=== PATIENT | male | born 1950 | race Caucasian/White ===

== ENCOUNTER → 2016-07-29 | Outpatient (CLI) | payer OTHER ==
[~2016-07-29] MED LIST: ASCO500T8 PO; AZO PO; B6 PO; CEPH-376 PO; CYAN500T18 PO; MIRA25TA PO; VITA10004 PO
[2016-07-29 15:13] LABS: BLOOD UREA NITROGEN 6 mg/dL (7-18)
[2016-07-29 15:16] LABS: ASPARTATE AMINO TRANSFERASE 31 U/L (15-37)
== END | disposition home or self-care (01) ==
LOC: STAR 14:02
PROVIDERS: ATTEND Surgery
DX: Z01.818 Encounter for other preprocedural examination (principal)
CPT/HCPCS: 36415; 80053; 85025; 93005

== ENCOUNTER 2016-08-08 05:54 | Inpatient (IN) | payer MEDICARE, OTHER ==
[~2016-08-08] VITALS: Ht 177.8 cm; Wt 90.4 kg
[2016-08-08 06:55] VITALS: BP 158/94
[2016-08-08] MEDS ORDERED: INDOCYANINE GREEN 25 MG VIAL ONE (06:57)
[2016-08-08] MEDS ORDERED: BUPIVACAINE/PF 0.25% ONE (06:57)
[2016-08-08] MEDS ORDERED: LACTATED RINGERS 1,000 ML IV SCH (07:01)
[2016-08-08] MEDS ORDERED: LIDOCAINE 1%, 2ML ONE (07:02)
[2016-08-08] MEDS ORDERED: KETAMINE 10 MG/ML, 20ML ONE (07:07)
[2016-08-08] MEDS ORDERED: FENTANYL PF 250 MCG/5ML ONE (07:07)
[2016-08-08] MEDS ORDERED: MIDAZOLAM 1 MG/ML, 2ML ONE (07:07)
[2016-08-08] MEDS ORDERED: LIDOCAINE 1%, 2ML SQ PRN (07:30)
[2016-08-08] MEDS ORDERED: DEXAMETHASONE 4 MG/ML, 1ML ONE (07:34)
[2016-08-08] MEDS ORDERED: CEFOTETAN 2 GM ONE ×2 (07:34)
[2016-08-08] MEDS ORDERED: ROCURONIUM 10 MG/ML ONE (07:34)
[2016-08-08] MEDS ORDERED: ONDANSETRON 2MG/ML, 2ML ONE (07:34)
[2016-08-08] MEDS ORDERED: NEOSTIGMINE 1 MG/ML, 10ML ONE (07:34)
[2016-08-08] MEDS ORDERED: PHENYLEPHRINE 10 MG/ML ONE (07:34)
[2016-08-08] MEDS ORDERED: LABETALOL 5MG/ML, 20ML ONE (07:34)
[2016-08-08] MEDS ORDERED: GLYCOPYRROLATE 0.2MG/1ML ONE (07:34)
[2016-08-08] MEDS ORDERED: PROPOFOL 10 MG/ML, 20ML ONE (07:34)
[2016-08-08] MEDS ORDERED: BUPIVACAINE/PF 0.25% INJ ONE (08:48)
[2016-08-08] MEDS ORDERED: ALBUTEROL SULFATE 2.5 MG/3 ML NPPB PRN (09:00)
[2016-08-08] MEDS ORDERED: hydrALAzine 20 MG/ML, 1ML IV PRN (09:00)
[2016-08-08] MEDS ORDERED: ONDANSETRON 2MG/ML, 2ML IVPush PRN (09:00)
[2016-08-08] MEDS ORDERED: MEPERIDINE/PF 25MG/0.5ML IVPush PRN (09:00)
[2016-08-08] MEDS ORDERED: ACETAMINOPHEN 325 MG TABLET PO PRN (09:00)
[2016-08-08] MEDS ORDERED: OXYcodone 5 MG/5 ML ORAL.SOL UDC PO PRN (09:00)
[2016-08-08] MEDS ORDERED: METOPROLOL 1 MG/ML, 5ML IV PRN (09:00)
[2016-08-08] MEDS ORDERED: PROMETHAZINE 25 MG/ML, 1ML IV PRN (09:00)
[2016-08-08] MEDS ORDERED: HYDROmorphone 2 MG/ML, 1ML ONE ×2 (09:13→11:10)
[2016-08-08] MEDS ORDERED: FENTANYL PF 100 MCG/2ML ONE (11:10)
[2016-08-08] MEDS: FENTANYL PF 100 MCG/2ML IV PRN ×2 (11:13→11:23)
[2016-08-08] MEDS: HYDROmorphone 1 MG/ML, 1ML IV PRN ×4 (11:18→11:50)
[2016-08-08] MEDS ORDERED: ACETAMINOPHEN 650 MG/20.3 ML UDC ONE (12:32)
[2016-08-08] MEDS ORDERED: OXYcodone 5 MG/5 ML ORAL.SOL UDC ONE (12:32)
[2016-08-08] MEDS ORDERED: HYDROmorphone 1 MG/ML, 1ML IV PRN (14:00)
[2016-08-08] MEDS ORDERED: DIPHENHYDRAMINE 50 MG/ML, 1ML IV PRN (14:00)
[2016-08-08] MEDS ORDERED: DIPHENHYDRAMINE 25 MG CAPSULE PO PRN (14:00)
[2016-08-08] MEDS ORDERED: LORazepam 2 MG/ML, 1ML IV PRN (14:00)
[2016-08-08] MEDS: POTASSIUM CHLORIDE 20 MEQ in D5%-0.45% NACL 1,000 ML IV SCH (16:16)
[2016-08-08] MEDS: PIPERACILLIN/TAZO 3.375 GM in SODIUM CHLORIDE 0.9% 50 ML IV SCH ×2 (16:16→20:07)
[2016-08-08] MEDS: ACETAMINOPHEN 500 MG TABLET PO SCH ×2 (16:19→20:07)
[2016-08-08] MEDS: IBUPROFEN 600 MG TABLET PO SCH ×2 (16:19→21:39)
[2016-08-08 19:45] VITALS: BP 97/55
[2016-08-08] MEDS: FAMOTIDINE 20 MG TABLET PO SCH (21:39)
[2016-08-08] MEDS: OXYcodone 5 MG/5 ML ORAL.SOL UDC PO PRN (23:24)
[2016-08-09 00:25] VITALS: BP 122/69
[2016-08-09] MEDS: PIPERACILLIN/TAZO 3.375 GM in SODIUM CHLORIDE 0.9% 50 ML IV SCH ×4 (02:00→19:26)
[2016-08-09] MEDS: ACETAMINOPHEN 500 MG TABLET PO SCH ×4 (02:25→19:26)
[2016-08-09] MEDS: ENOXAPARIN 40 MG/0.4 ML SQ SCH (04:20)
[2016-08-09 05:27] VITALS: BP 105/66
[2016-08-09 05:27] LABS: BLOOD UREA NITROGEN 13 mg/dL (7-18)
[2016-08-09 06:55] VITALS: BP 112/65
[2016-08-09] MEDS: FAMOTIDINE 20 MG TABLET PO SCH ×2 (08:38→21:00)
[2016-08-09] MEDS: [UNRECOGNIZED DRUG - OTHER] HOMEMEDPO SCH (08:39)
[2016-08-09] MEDS: IBUPROFEN 600 MG TABLET PO SCH ×3 (08:39→21:00)
[2016-08-09] MEDS: POTASSIUM CHLORIDE 20 MEQ in D5%-0.45% NACL 1,000 ML IV SCH (10:12)
[2016-08-09] MEDS: OXYcodone 5 MG/5 ML ORAL.SOL UDC PO PRN ×2 (11:26→19:26)
[2016-08-09 13:20] VITALS: BP 131/79
[2016-08-09 18:36] VITALS: BP 125/73
[2016-08-10] MEDS: ACETAMINOPHEN 500 MG TABLET PO SCH ×4 (02:00→19:54)
[2016-08-10 02:16] VITALS: BP 138/83
[2016-08-10] MEDS: PIPERACILLIN/TAZO 3.375 GM in SODIUM CHLORIDE 0.9% 50 ML IV SCH ×4 (02:42→19:54)
[2016-08-10] MEDS: ENOXAPARIN 40 MG/0.4 ML SQ SCH (04:00)
[2016-08-10 05:07] LABS: BLOOD UREA NITROGEN 13 mg/dL (7-18)
[2016-08-10] MEDS: POTASSIUM CHLORIDE 20 MEQ in D5%-0.45% NACL 1,000 ML IV SCH (05:27)
[2016-08-10 08:24] VITALS: BP 144/86
[2016-08-10] MEDS: [UNRECOGNIZED DRUG - OTHER] HOMEMEDPO SCH (09:39)
[2016-08-10] MEDS: IBUPROFEN 600 MG TABLET PO SCH ×3 (09:39→22:13)
[2016-08-10] MEDS: FAMOTIDINE 20 MG TABLET PO SCH ×2 (09:39→22:13)
[2016-08-10] MEDS: OXYcodone 5 MG/5 ML ORAL.SOL UDC PO PRN ×3 (09:39→19:55)
[2016-08-10 14:26] VITALS: BP 135/78
[2016-08-10] MEDS: FLUCONAZOLE 200 MG/100 ML 100 ML IV SCH (14:58)
[2016-08-10 18:47] VITALS: BP 133/70
[2016-08-11 02:30] VITALS: BP 109/68
[2016-08-11] MEDS: POTASSIUM CHLORIDE 20 MEQ in D5%-0.45% NACL 1,000 ML IV SCH ×2 (02:36→22:48)
[2016-08-11] MEDS: PIPERACILLIN/TAZO 3.375 GM in SODIUM CHLORIDE 0.9% 50 ML IV SCH ×4 (02:48→23:41)
[2016-08-11] MEDS: ACETAMINOPHEN 500 MG TABLET PO SCH ×4 (02:48→20:15)
[2016-08-11] MEDS: ENOXAPARIN 40 MG/0.4 ML SQ SCH (04:59)
[2016-08-11 05:46] LABS: BLOOD UREA NITROGEN 14 mg/dL (7-18)
[2016-08-11 07:45] VITALS: BP 143/85
[2016-08-11] MEDS: [UNRECOGNIZED DRUG - OTHER] HOMEMEDPO SCH (08:39)
[2016-08-11] MEDS: FAMOTIDINE 20 MG TABLET PO SCH ×2 (08:41→21:42)
[2016-08-11] MEDS: IBUPROFEN 600 MG TABLET PO SCH ×3 (08:41→21:42)
[2016-08-11] MEDS: LORazepam 1MG TABLET PO PRN (08:52)
[2016-08-11 13:20] VITALS: BP 151/79
[2016-08-11] MEDS: FLUCONAZOLE 200 MG/100 ML 100 ML IV SCH (14:59)
[2016-08-11] MEDS: OXYcodone 5 MG/5 ML ORAL.SOL UDC PO PRN ×2 (15:39→20:16)
[2016-08-11 20:00] VITALS: BP 129/84
[2016-08-12] MEDS: OXYcodone 5 MG/5 ML ORAL.SOL UDC PO PRN ×4 (02:28→21:13)
[2016-08-12] MEDS: ACETAMINOPHEN 500 MG TABLET PO SCH ×4 (02:32→19:46)
[2016-08-12 03:13] VITALS: BP 165/94
[2016-08-12 03:59] VITALS: BP 143/90
[2016-08-12] MEDS: ENOXAPARIN 40 MG/0.4 ML SQ SCH (04:06)
[2016-08-12] MEDS: PIPERACILLIN/TAZO 3.375 GM in SODIUM CHLORIDE 0.9% 50 ML IV SCH ×4 (05:12→23:39)
[2016-08-12 05:53] LABS: BLOOD UREA NITROGEN 15 mg/dL (7-18)
[2016-08-12 06:58] VITALS: BP 135/86
[2016-08-12] MEDS: [UNRECOGNIZED DRUG - OTHER] HOMEMEDPO SCH (08:56)
[2016-08-12] MEDS: FAMOTIDINE 20 MG TABLET PO SCH ×2 (08:56→21:13)
[2016-08-12] MEDS: IBUPROFEN 600 MG TABLET PO SCH ×3 (08:56→21:13)
[2016-08-12] MEDS: LORazepam 1MG TABLET PO PRN (11:42)
[2016-08-12 14:14] VITALS: BP 131/78
[2016-08-12] MEDS: FLUCONAZOLE 200 MG/100 ML 100 ML IV SCH (14:34)
[2016-08-12] MEDS: POTASSIUM CHLORIDE 20 MEQ in D5%-0.45% NACL 1,000 ML IV SCH (19:00)
[2016-08-12 20:28] VITALS: BP 151/67
[2016-08-13] MEDS: ACETAMINOPHEN 500 MG TABLET PO SCH ×2 (02:23→08:18)
[2016-08-13 03:03] VITALS: BP 138/71
[2016-08-13] MEDS: ENOXAPARIN 40 MG/0.4 ML SQ SCH (04:19)
[2016-08-13] MEDS: PIPERACILLIN/TAZO 3.375 GM in SODIUM CHLORIDE 0.9% 50 ML IV SCH ×2 (05:17→11:33)
[2016-08-13 07:18] VITALS: BP 159/87
[2016-08-13] MEDS: FAMOTIDINE 20 MG TABLET PO SCH (08:18)
[2016-08-13] MEDS: IBUPROFEN 600 MG TABLET PO SCH (08:18)
[2016-08-13] MEDS: [UNRECOGNIZED DRUG - OTHER] HOMEMEDPO SCH (08:19)
[2016-08-13] MEDS: OXYcodone 5 MG/5 ML ORAL.SOL UDC PO PRN (08:54)
[2016-08-13] MEDS ORDERED: OXYC-302 PO (12:30)
[2016-08-13] MEDS ORDERED: AMOX1TAB64 PO (12:34)
== END 2016-08-13 12:50 | disposition home or self-care (01) | DRG 329 ==
LOC: ORIP 05:54 → 4NOR 13:20 → DCLOUNGE 08-13 12:26
PROVIDERS: ADMIT Surgery; ATTEND Surgery
PROC: 8E0W4CZ Robotic Assisted Procedure of Trunk Region, Percutaneous Endoscopic Approach (ICD-10-PCS; 2016-08-08)
PROC: 0D1B0Z4 Bypass Ileum to Cutaneous, Open Approach (ICD-10-PCS; 2016-08-08)
PROC: 0DTN4ZZ Resection of Sigmoid Colon, Percutaneous Endoscopic Approach (ICD-10-PCS; 2016-08-08)
PROC: 0DBN0ZZ Excision of Sigmoid Colon, Open Approach (ICD-10-PCS; principal; 2016-08-08 07:30)
DX: K57.20 Diverticulitis of large intestine with perforation and abscess without bleeding (principal); E43 Unspecified severe protein-calorie malnutrition; N32.1 Vesicointestinal fistula; J44.9 Chronic obstructive pulmonary disease, unspecified; F17.200 Nicotine dependence, unspecified, uncomplicated; K57.30 Diverticulosis of large intestine without perforation or abscess without bleeding; E66.9 Obesity, unspecified; F10.10 Alcohol abuse, uncomplicated; Z88.2 Allergy status to sulfonamides; Z68.28 Body mass index [BMI] 28.0-28.9, adult
CPT/HCPCS: 36415; 80048; 82040; 85025; 86850; 86900; 87070; 87075; 87077; 87102; 87106; 87205; 88307; C1729; J1100; J1170; J1650; J2250; J2405; J2543; J2704; J2710; J3010; J3480; J3490; J1450; J2370; J7120; S0074

== ENCOUNTER → 2016-08-16 | Outpatient (CLI) | payer OTHER ==
[~2016-08-16] MED LIST changes: +AMOX1TAB64 PO; +CYSTO CONRAY II 250 ML VIAL UR ONE; +OXYC-302 PO
== END | disposition home or self-care (01) ==
LOC: RAD 11:13
PROVIDERS: ATTEND Surgery
DX: R10.2 Pelvic and perineal pain (principal); Z92.89 Personal history of other medical treatment
CPT/HCPCS: 74430; Q9958

== ENCOUNTER → 2016-10-01 | Outpatient (CLI) | payer OTHER ==
[~2016-10-01] MED LIST changes: -CYSTO CONRAY II 250 ML VIAL UR ONE
== END | disposition home or self-care (01) ==
LOC: STAR 12:54
PROVIDERS: ATTEND Surgery
DX: Z02.9 Encounter for administrative examinations, unspecified (principal)

== ENCOUNTER 2016-10-10 05:56 | Inpatient (IN) | payer MEDICARE, OTHER ==
[~2016-10-10] VITALS: Ht 175.3 cm; Wt 91.0 kg
[2016-10-10] MEDS ORDERED: LACTATED RINGERS 1,000 ML IV SCH (06:08)
[2016-10-10] MEDS ORDERED: FENTANYL PF 250 MCG/5ML ONE ×2 (06:50→08:06)
[2016-10-10] MEDS ORDERED: MIDAZOLAM 1 MG/ML, 2ML ONE (06:50)
[2016-10-10] MEDS ORDERED: OXYcodone 5 MG/5 ML ORAL.SOL UDC PO PRN (07:30)
[2016-10-10] MEDS ORDERED: LABETALOL 5MG/ML, 20ML IV PRN (07:30)
[2016-10-10] MEDS ORDERED: KETOROLAC 30 MG/1 ML IV PRN (07:30)
[2016-10-10] MEDS ORDERED: ACETAMINOPHEN 325 MG TABLET PO PRN (07:30)
[2016-10-10] MEDS ORDERED: MEPERIDINE/PF 25MG/0.5ML IVPush PRN (07:30)
[2016-10-10] MEDS ORDERED: ONDANSETRON 2MG/ML, 2ML IVPush PRN (07:30)
[2016-10-10] MEDS ORDERED: ALBUTEROL SULFATE 2.5 MG/3 ML ONE (08:33)
[2016-10-10] MEDS ORDERED: FENTANYL PF 100 MCG/2ML ONE ×2 (08:43→09:04)
[2016-10-10] MEDS ORDERED: HYDROmorphone 1 MG/ML, 1ML ONE ×2 (08:43→09:36)
[2016-10-10] MEDS ORDERED: OXYcodone 5 MG/5 ML ORAL.SOL UDC ONE (08:43)
[2016-10-10] MEDS: HYDROmorphone 1 MG/ML, 1ML IV PRN ×4 (08:50→10:00)
[2016-10-10] MEDS: FENTANYL PF 100 MCG/2ML IV PRN ×4 (08:56→09:14)
[2016-10-10] MEDS ORDERED: MEPERIDINE/PF 25MG/0.5ML ONE (09:04)
[2016-10-10] MEDS ORDERED: ACETAMINOPHEN 325 MG TABLET ONE (09:22)
[2016-10-10] MEDS ORDERED: FAMOTIDINE 20 MG/2 ML ONE (09:31)
[2016-10-10] MEDS ORDERED: DIPHENHYDRAMINE 50 MG/ML, 1ML ONE (09:37)
[2016-10-10] MEDS ORDERED: FAMOTIDINE 20 MG/2 ML IVPush ONE (10:00)
[2016-10-10] MEDS ORDERED: DIPHENHYDRAMINE 50 MG/ML, 1ML IVPush ONE (10:00)
[2016-10-10] MEDS ORDERED: GLYCOPYRROLATE 0.2MG/1ML ONE (11:00)
[2016-10-10] MEDS ORDERED: CEFOTETAN 2 GM ONE (11:00)
[2016-10-10] MEDS ORDERED: ONDANSETRON 2MG/ML, 2ML ONE (11:00)
[2016-10-10] MEDS ORDERED: NEOSTIGMINE 1 MG/ML, 10ML ONE (11:00)
[2016-10-10] MEDS ORDERED: POTASSIUM CHLORIDE 20 MEQ in D5%-0.45% NACL 1,000 ML IV SCH (12:00)
[2016-10-10] MEDS ORDERED: HYDROmorphone 1 MG/ML, 1ML IV PRN (12:00)
[2016-10-10] MEDS ORDERED: LORazepam 2 MG/ML, 1ML IV PRN (12:00)
[2016-10-10] MEDS ORDERED: LORazepam 1MG TABLET PO PRN (12:00)
[2016-10-10] MEDS: OXYcodone 5 MG/5 ML ORAL.SOL UDC PO PRN ×2 (13:23→17:32)
[2016-10-10 15:24] VITALS: BP 129/81
[2016-10-10] MEDS: IBUPROFEN 600 MG TABLET PO SCH ×2 (16:00→22:45)
[2016-10-10] MEDS: ACETAMINOPHEN 500 MG TABLET PO SCH ×2 (17:32→21:00)
[2016-10-10] MEDS: POTASSIUM CHLORIDE 20 MEQ in D5%-0.45% NACL 1,000 ML IV SCH (18:20)
[2016-10-10 19:03] VITALS: BP 124/66
[2016-10-10] MEDS: CEFOTETAN PMX 2GM/50ML 50 ML IVPB SCH (19:38)
[2016-10-10] MEDS: FAMOTIDINE 20 MG TABLET PO SCH (19:42)
[2016-10-10 23:29] VITALS: BP 121/75
[2016-10-11] MEDS: ACETAMINOPHEN 500 MG TABLET PO SCH ×4 (03:00→21:53)
[2016-10-11 03:52] VITALS: BP 121/70
[2016-10-11 05:03] LABS: BLOOD UREA NITROGEN 9 mg/dL (7-18)
[2016-10-11] MEDS: OXYcodone 5 MG/5 ML ORAL.SOL UDC PO PRN (05:37)
[2016-10-11] MEDS: ENOXAPARIN 40 MG/0.4 ML SQ SCH (05:46)
[2016-10-11] MEDS: POTASSIUM CHLORIDE 20 MEQ in D5%-0.45% NACL 1,000 ML IV SCH (08:12)
[2016-10-11 08:16] VITALS: BP 138/80
[2016-10-11] MEDS: IBUPROFEN 600 MG TABLET PO SCH ×3 (08:16→21:53)
[2016-10-11] MEDS: FAMOTIDINE 20 MG TABLET PO SCH ×2 (08:16→21:53)
[2016-10-11] MEDS: CEFOTETAN PMX 2GM/50ML 50 ML IVPB SCH (08:17)
[2016-10-11 15:25] VITALS: BP 147/81
[2016-10-11 21:09] VITALS: BP 151/88
[2016-10-12 03:04] VITALS: BP 127/79
[2016-10-12] MEDS: ACETAMINOPHEN 500 MG TABLET PO SCH ×2 (03:26→09:40)
[2016-10-12] MEDS: POTASSIUM CHLORIDE 20 MEQ in D5%-0.45% NACL 1,000 ML IV SCH (04:24)
[2016-10-12 06:13] LABS: BLOOD UREA NITROGEN 11 mg/dL (7-18)
[2016-10-12] MEDS: ENOXAPARIN 40 MG/0.4 ML SQ SCH (06:21)
[2016-10-12 07:45] VITALS: BP 128/83
[2016-10-12] MEDS ORDERED: TAMS-11 PO (09:25)
[2016-10-12] MEDS ORDERED: OXYC-302 PO (09:26)
[2016-10-12] MEDS: IBUPROFEN 600 MG TABLET PO SCH (09:40)
[2016-10-12] MEDS: FAMOTIDINE 20 MG TABLET PO SCH (09:40)
== END 2016-10-12 12:30 | disposition home or self-care (01) | DRG 329 ==
LOC: ORIP 05:56 → 4NOR 11:04
PROVIDERS: ADMIT Surgery; ATTEND Surgery
PROC: 0DBB0ZZ Excision of Ileum, Open Approach (ICD-10-PCS; principal; 2016-10-10 07:30)
DX: Z43.2 Encounter for attention to ileostomy (principal); E43 Unspecified severe protein-calorie malnutrition; Z88.2 Allergy status to sulfonamides
CPT/HCPCS: 36415; 80048; 82040; 85025; 86850; 86900; 86923; 88307; 94640; J1170; J1650; J2175; J2250; J2405; J2710; J3010; J3480; J3490; J1200; J7120; S0028; S0074

== ENCOUNTER 2018-09-01 10:08 | Outpatient (CLI) | payer OTHER ==
[~2018-09-01 10:08] MED LIST changes: +ATOR10TA9 PO; +CARV3.1212 PO; +LISI5TAB7 PO; +TAMS-11 PO
== END 2018-09-01 23:59 | disposition home or self-care (01) ==
LOC: CFH 10:08
PROVIDERS: ATTEND Family Medicine
DX: Z12.2 Encounter for screening for malignant neoplasm of respiratory organs (principal); Z72.0 Tobacco use
CPT/HCPCS: G0297